=== PATIENT | female | born 1965 | race Caucasian/White ===

== ENCOUNTER → 2020-10-15 | Day surgery (SDC) | payer OTHER ==
[~2020-10-15] VITALS: Ht 162.6 cm; Wt 75.0 kg
[~2020-10-15] MED LIST: ANASTROZOLE1 M1 PO; ASPIRIN EC81 MG PO; BUPROPION XL150 MG PO; CENTRUM ADULTS1 EACH PO; FLEXERIL10 MG PO; KETOROLAC TROME10 MG PO; NORCO 5-325 TA1 EACH PO; PRAVASTATIN SOD10 M1 PO; VITAMIN B122500 MC1 PO; VITAMIN D1000 UNIT PO; VOLTAREN **OUT75 MG PO; ZOFRAN4 MG PO
== END | disposition home or self-care (01) ==
LOC: FAS 07:05
DX: Z12.11 Encounter for screening for malignant neoplasm of colon (principal); D12.3 Benign neoplasm of transverse colon; I10 Essential (primary) hypertension; E78.00 Pure hypercholesterolemia, unspecified; E78.5 Hyperlipidemia, unspecified; G43.909 Migraine, unspecified, not intractable, without status migrainosus; I87.2 Venous insufficiency (chronic) (peripheral); F17.210 Nicotine dependence, cigarettes, uncomplicated; Z79.899 Other long term (current) drug therapy; Z80.3 Family history of malignant neoplasm of breast; Z20.822 Contact with and (suspected) exposure to COVID-19; Z78.0 Asymptomatic menopausal state; Z86.010 Personal history of colon polyps; Z98.890 Other specified postprocedural states
CPT/HCPCS: J1610; J2704; J7120

== ENCOUNTER 2021-11-24 10:23 | Emergency (ER) | payer OTHER ==
[~2021-11-24] VITALS: Ht 193 cm; Wt 74.8 kg
== END 2021-11-24 14:00 | disposition home or self-care (01) ==
LOC: FER 10:23
DX: S62.336A Displaced fracture of neck of fifth metacarpal bone, right hand, initial encounter for closed fracture (principal); F17.200 Nicotine dependence, unspecified, uncomplicated; W22.8XXA Striking against or struck by other objects, initial encounter; Y92.009 Unspecified place in unspecified non-institutional (private) residence as the place of occurrence of the external cause
CPT/HCPCS: 73130